=== PATIENT | male | born 1935 | race Caucasian/White ===

== ENCOUNTER 2016-10-31 20:24 | Emergency (ER) | payer MEDICARE ==
[2016-10-31 22:00] LABS: BASOPHIL 0.6 % (0-2); HCT 40.9 % (42.0-52.0); HGB 13.1 g/dl (13.2-18.0); LYMPHOCYTE 30.2 % (15-48); MCH 28.2 pg (25.0-31.0); MCV 88.1 fL (78.0-100.0); MONOCYTE 9.3 % (0-12); MPV 11.3 fL (6.0-9.5); NEUTROPHIL 55.9 % (41-80); PLT 197 K/uL (150-400); RBC 4.64 M/uL (4.70-6.00); WBC 7.7 K/uL (4.0-10.5)
[2016-10-31 22:19] LABS: CKMB 3.28 ng/mL (0.97-4.94); TROPONIN T < 0.010 ng/mL
[2016-10-31 22:23] LABS: ALBUMIN 4.3 g/dL (3.4-4.8); BILIRUBIN - TOTAL 0.3 mg/dL (0.1-1.0); CREATININE 1.5 mg/dL (0.7-1.2); GLOBULIN (CALCULATION) 2.5 g/dL (2.2-4.2); POTASSIUM 3.9 mmol/L (3.5-5.1); TOTAL PROTEIN 6.8 g/dL (6.4-8.3)
[2016-10-31 22:28] LABS: BILIRUBIN NEGATIVE (NEGATIVE); BLOOD NEGATIVE Ery/uL (NEGATIVE); CLARITY CLEAR (CLEAR); COLOR YELLOW (YELLOW); GLUCOSE (U) NORMAL (NORMAL); KETONE (U) NEGATIVE (NEGATIVE); LEUKOCYTES NEGATIVE Leu/uL (NEGATIVE); NITRITE NEGATIVE (NEGATIVE); PROTEIN TRACE (LOW) mg/dL (NEGATIVE); SPECIFIC GRAVITY >=1.030 (1.001-1.030); UROBILINOGEN 0.2 mg/dL (0.2-1.0); pH 5.5 (5.0-9.0)
[2016-10-31 22:34] LABS: SQUAMOUS EPITHELIAL CELLS RARE
== END 2016-10-31 23:35 | disposition home or self-care (01) ==
LOC: FER 20:24
PROVIDERS: Emergency Medicine Emergency Medical Services
DX: I10 Essential (primary) hypertension (principal); I45.2 Bifascicular block; J44.9 Chronic obstructive pulmonary disease, unspecified; Z79.02 Long term (current) use of antithrombotics/antiplatelets; Z79.82 Long term (current) use of aspirin; Z79.899 Other long term (current) drug therapy; Z95.1 Presence of aortocoronary bypass graft
CPT/HCPCS: 36415; 70450; 71010; 80053; 81001; 82550; 82553; 84484; 85025; 93005

== ENCOUNTER 2021-04-30 22:08 | Emergency (ER) | payer MEDICARE ==
[~2021-04-30 22:08] MED LIST: DIOVAN160 MG PO; DIOVAN80 MG PO; LINZESS145 MCG PO; NAMENDA 10MG TA10 MG PO; PLAVIX75 MG PO; SYNTHROID50 MCG PO; TOPROL XL 25MG25 MG PO; TOPROL XL 50 MG50 MG PO; ZOLOFT50 MG PO
[2021-04-30 22:55] LABS: EOSINOPHIL 1.9 % (0-7); HCT 37.9 % (42.0-52.0); HGB 11.6 g/dl (13.2-18.0); LYMPHOCYTE 16.6 % (15-48); MCH 28.7 pg (25.0-31.0); MCHC 30.6 g/dL (32.0-36.0); MCV 93.8 fL (78.0-100.0); MONOCYTE 6.9 % (0-12); MPV 11.9 fL (6.0-9.5); NEUTROPHIL 73.5 % (41-80); NRBC 0.4; PLT 155 K/uL (150-400); RBC 4.04 M/uL (4.70-6.00); RDW 15.6 % (11.5-14.0); WBC 6.9 K/uL (4.0-10.5)
[2021-04-30 23:18] LABS: PRO-BNP 407 pg/mL (<450)
[2021-04-30 23:31] LABS: ALBUMIN 3.5 g/dL (3.4-5.0); BILIRUBIN - TOTAL 0.3 mg/dL (0.2-1.0); BUN/CREAT RATIO (CALC) 16.5 RATIO; CREATININE 1.82 mg/dL (0.67-1.17); GLOBULIN (CALCULATION) 3.1 g/dL; POTASSIUM 3.7 mmol/L (3.5-5.1); TOTAL PROTEIN 6.6 g/dL (6.4-8.2)
[2021-05-01 16:14] LABS: BILIRUBIN NEGATIVE (NEGATIVE); BLOOD NEGATIVE Ery/uL (NEGATIVE); CLARITY CLEAR (CLEAR); COLOR YELLOW (YELLOW); GLUCOSE (U) NORMAL (NORMAL); LEUKOCYTES NEGATIVE Leu/uL (NEGATIVE); NITRITE NEGATIVE (NEGATIVE); PROTEIN NEGATIVE (NEGATIVE); SPECIFIC GRAVITY 1.015 (1.001-1.030); UROBILINOGEN 0.2 mg/dL (0.2-1.0)
== END 2021-05-02 08:20 | disposition other institution (70) ==
LOC: FER 22:08 → EDBD 22:08 → FER 05-02 08:20
PROVIDERS: Emergency Medicine
DX: R55 Syncope and collapse (principal); R00.1 Bradycardia, unspecified; I25.2 Old myocardial infarction; F03.90 Unspecified dementia, unspecified severity, without behavioral disturbance, psychotic disturbance, mood disturbance, and anxiety; Z86.73 Personal history of transient ischemic attack (TIA), and cerebral infarction without residual deficits; Z79.01 Long term (current) use of anticoagulants; Z79.82 Long term (current) use of aspirin; Z20.822 Contact with and (suspected) exposure to COVID-19
CPT/HCPCS: 36415; 70450; 71045; 80053; 81003; 83880; 84443; 84484; 85025; 93005; U0002

== ENCOUNTER 2021-07-22 16:51 | Inpatient (IN) | payer MEDICARE ==
[~2021-07-22] VITALS: Ht 177.8 cm; Wt 85.3 kg
[2021-07-22 18:24] LABS: BASOPHIL 0.3 % (0-2); EOSINOPHIL 0.3 % (0-7); HCT 34.3 % (42.0-52.0); HGB 10.7 g/dl (13.2-18.0); LYMPHOCYTE 11.2 % (15-48); MCHC 31.2 g/dL (32.0-36.0); MCV 89.8 fL (78.0-100.0); MONOCYTE 6.5 % (0-12); MPV 12.1 fL (6.0-9.5); NEUTROPHIL 81.1 % (41-80); NRBC 0; PLT 158 K/uL (150-400); RBC 3.82 M/uL (4.70-6.00)
[2021-07-22 18:37] LABS: ALBUMIN 2.9 g/dL (3.4-5.0); BILIRUBIN - TOTAL 0.4 mg/dL (0.2-1.0); BUN/CREAT RATIO (CALC) 21.6 RATIO; CREATININE 1.76 mg/dL (0.67-1.17); GLOBULIN (CALCULATION) 3.5 g/dL; TOTAL PROTEIN 6.4 g/dL (6.4-8.2)
[2021-07-22 20:46] LABS: INFLUENZA A NAA NEGATIVE (NEGATIVE)
[2021-07-22 20:50] LABS: CORONAVIRUS 2019 SARS-COV-2 POSITIVE (NEGATIVE)
[2021-07-23 00:33] LABS: BILIRUBIN NEGATIVE (NEGATIVE); BLOOD 1+ Ery/uL (NEGATIVE); CLARITY CLEAR (CLEAR); COLOR YELLOW (YELLOW); GLUCOSE (U) NORMAL (NORMAL); LEUKOCYTES NEGATIVE Leu/uL (NEGATIVE); NITRITE NEGATIVE (NEGATIVE); PROTEIN 1+ mg/dL (NEGATIVE); SPECIFIC GRAVITY 1.025 (1.001-1.030); UROBILINOGEN 0.2 mg/dL (0.2-1.0)
[2021-07-23 00:36] LABS: BACTERIA 1+; URINARY WBC RARE
[2021-07-23] MEDS ORDERED: NAMENDA 10MG TA10 MG PO (11:42)
[2021-07-23] MEDS ORDERED: ZYPREXA 5MG TABL5 MG PO (11:43)
[2021-07-23] MEDS ORDERED: COLACE100 MG PO (11:43)
[2021-07-23] MEDS ORDERED: ELIQUIS2.5 MG PO (11:43)
[2021-07-23] MEDS ORDERED: LIPITOR40 MG PO (11:43)
[2021-07-23] MEDS ORDERED: PREVACID30 M1 PO (11:44)
[2021-07-24 07:02] LABS: BASOPHIL 0.3 % (0-2); EOSINOPHIL 0 % (0-7); HCT 32.7 % (42.0-52.0); HGB 9.9 g/dl (13.2-18.0); LYMPHOCYTE 31.7 % (15-48); MCH 27.7 pg (25.0-31.0); MCHC 30.3 g/dL (32.0-36.0); MCV 91.3 fL (78.0-100.0); MONOCYTE 7.5 % (0-12); MPV 12.3 fL (6.0-9.5); NEUTROPHIL 59.8 % (41-80); NRBC 0; PLT 168 K/uL (150-400); RBC 3.58 M/uL (4.70-6.00); RETICULOCYTE COUNT 0.6 % (1.0-2.0); WBC 3.1 K/uL (4.0-10.5)
[2021-07-24 07:14] LABS: IRON % SATURATION 21.3 %SAT (20-50)
[2021-07-24 07:53] LABS: BUN/CREAT RATIO (CALC) 23.3 RATIO; CREATININE 1.29 mg/dL (0.67-1.17); FOLIC ACID (SERUM) 8.3 ng/mL (8.6-58.9); MAGNESIUM 2.4 mg/dL (1.8-2.4); PHOSPHORUS 2.9 mg/dL (2.6-4.7); POTASSIUM 4.3 mmol/L (3.5-5.1)
--- NOTE | 2021-07-25 12:43 | NUR ---
TC TO DAUGHTER, SHE DOES NOT HAVE A HH PREFERENCE. THE ONLY ACCEPTING PT IS [facility]. DAUGHTER WAS OK WITH THAT HH. FAXED INFORMATION TO [facility] WAITING ON ACCEPTANCE.
== END 2021-07-25 16:35 | disposition home health service (06) | DRG 871 ==
LOC: FER 16:51 → FMS 07-23 11:43
PROVIDERS: Nurse Practitioner Family; ADMIT Internal Medicine
PROC: 8E0ZXY6 Isolation (ICD-10-PCS; principal; 2021-07-23)
PROC: XW033E5 Introduction of Remdesivir Anti-infective into Peripheral Vein, Percutaneous Approach, New Technology Group 5 (ICD-10-PCS; 2021-07-23)
DX: A41.89 Other specified sepsis (principal); U07.1 COVID-19; J12.82 Pneumonia due to coronavirus disease 2019; G93.41 Metabolic encephalopathy; J96.01 Acute respiratory failure with hypoxia; I45.2 Bifascicular block; G30.9 Alzheimer's disease, unspecified; F02.80 Dementia in other diseases classified elsewhere, unspecified severity, without behavioral disturbance, psychotic disturbance, mood disturbance, and anxiety; R55 Syncope and collapse; R65.20 Severe sepsis without septic shock; L89.156 Pressure-induced deep tissue damage of sacral region; D50.9 Iron deficiency anemia, unspecified; I12.9 Hypertensive chronic kidney disease with stage 1 through stage 4 chronic kidney disease, or unspecified chronic kidney disease; N18.9 Chronic kidney disease, unspecified; I25.10 Atherosclerotic heart disease of native coronary artery without angina pectoris; G47.33 Obstructive sleep apnea (adult) (pediatric); Z98.890 Other specified postprocedural states; Z95.1 Presence of aortocoronary bypass graft; Z85.038 Personal history of other malignant neoplasm of large intestine; Z90.49 Acquired absence of other specified parts of digestive tract; Z79.01 Long term (current) use of anticoagulants; Z79.890 Hormone replacement therapy; Z79.899 Other long term (current) drug therapy
CPT/HCPCS: 36415; 36600; 70450; 71046; 80048; 80053; 81001; 82607; 82746; 82803; 83540; 83550; 83605; 83735; 83880; 84100; 84145; 84443; 84484; 85025; 85379; 93005; 94010; 94668; C9399; J0456; J0696; J1100; J1644; J1650; J2916; J3420; J7030; J7050; U0002